=== PATIENT | male | born 1985 | race Caucasian/White ===

== ENCOUNTER 2025-05-27 20:06 | Emergency (ER) | payer BC, SELFPAY ==
[2025-05-27 20:17] VITALS: BP 126/83
[2025-05-27 20:40] LABS: Hematocrit 41.9 % (39.0-52.0); Hemoglobin 14.1 g/dL (13.0-18.0); Mean Corp Hgb Conc. 33.7 g/dL (33.0-37.0); Mean Corpuscular Volume 88.8 fL (80.0-94.0); Nucleated Red Blood Cells % 0 % (-); Platelet Count 301 10^3/uL (130-400); Red Cell Dist. Width 12.0 % (11.5-14.5)
[2025-05-27 20:54] LABS: ALT (SGPT) 28 U/L (0-50); AST (SGOT) 27 U/L (17-59); Albumin 4.6 g/dl (3.5-5.0); Alkaline Phosphatase 60 U/L (38-126); Blood Urea Nitrogen 22 mg/dl (9-20); Calcium 9.6 mg/dl (8.4-10.2); Carbon Dioxide 27 mmol/L (22-30); Chloride 104 mmol/L (98-107); Glucose 95 mg/dl (70-99); Potassium 4.1 mmol/L (3.5-5.1); Sodium 139 mmol/L (135-145); Total Protein 7.3 g/dl (6.3-8.2); eGFR > 60.00
[2025-05-27 21:03] LABS: Troponin I < 0.012 ng/ml
[2025-05-27 22:44] VITALS: BMI 23.4
[2025-05-27 22:51] VITALS: BP 124/82
--- NOTE | 2025-05-27 23:36 | ED.GENMED ---
History of Present Illness
<Nellie Sotelo MD, Resident - Last Filed: 05/28/25 00:01>
General
Chief Complaint: Chest Pain
Source: patient
Time Seen by Provider: 05/27/25 22:50
Nursing documentation reviewed up to this point in time: agreed with
History of Present Illness
History of Present Illness:
Mr. John eSay is a 39-year-old male with a PMH of a spontaneous pneumothorax, who is presenting with sharp left pectoral pain in the setting of dull pain since a fall during soccer 3 weeks ago.
He slipped on wet grass in the rain while playing soccer and fell his left side, getting a bruise on his left hip that is healing and mild pain at his left chest wall due to falling on his left arm, which was adducted at his side. Today while
walking he felt sharp pain at his left pectoral region.
He states this chest pain does not feel like his previous spontaneous pneumothorax. Previous pneumothorax started while he was folding clothes. He tolerated it for 3 days and went to urgent care when he could not breathe deeply enough. He
received surgery for his pneumothorax.
He denies retrosternal chest pain and shortness of breath.
Past History
<Nellie Sotelo MD, Resident - Last Filed: 05/28/25 00:01>
Past History
ED Past Medical History: None
ED Past Surgical History: None
Social History
Tobacco: Non-smoker
Personal:
Living: with family
Employment: Employed
Review of Systems
<Nellie Sotelo MD, Resident - Last Filed: 05/28/25 00:01>
Review of Systems
All Other Systems: ROS reviewed and negative except as documented in HPI and ROS
Phy Exam
<Nellie Sotelo MD, Resident - Last Filed: 05/28/25 00:01>
Physical Exam
Physical Exam:
General: In no acute acute distress, speaking comfortably in full sentences
Lungs: Clear to auscultation in all lung lewis, breath sounds auscultated in all lung lewis
Cardiovascular: Regular rate and rhythm
Chest Wall: No bruising, discoloration, or rash
No tenderness to palpation, except point tenderness at the retroareolar area to deep palpation
MSK:
Movement (abduction, flexion, circumduction) of the left arm/shoulder triggers his chest wall pain
No tenderness to palpation of left shoulder
Healing bruise at left hip
Abdomen: Normal bowel sounds, no tenderness to palpation
Scores
<Nellie Sotelo MD, Resident - Last Filed: 05/28/25 00:01>
Heart Score for Chest Pain Patients
STEMI patient?: No
History: Slightly or Non-Suspicious
ECG: Normal
Age: </= 45 years
Risk Factors: No Risk Factors
Troponin: </= Normal Limit
Heart Score for Chest Pain Patients: 0
Heart Score Risk: 2.5% MACE over next 6 weeks
Course
<Nellie Sotelo MD, Resident - Last Filed: 05/28/25 00:01>
Orders/Labs/Results
Orders:
Orders
05/27/25 20:07
Electrocardiogram (*1) Urgent
Reason for Study: Chest Pain
EKG- Treatment ONCE
IV Insert/Care/Rem.- Treatment PRN
05/27/25 20:19
CR Chest - 2 Views Urgent
Comment:
Reason For Exam: L sided chest pain, hx of pneumothorax
05/27/25 20:30
Complete Blood Count/With Diff Urgent
Comprehensive Metabolic Panel Urgent
Troponin I Urgent
Abnormal Lab Results
05/27/25
20:30
Absolute Monos (auto) 0.8 H 10^3/uL
(0.1-0.6)
Monocytes % 9.4 H %
(1.7-9.3)
BUN 22 H mg/dl
(9-20)
05/27/25 20:30
05/27/25 20:30
Vital Signs
Initial and Last Documented VS:
Initial Vital Signs
Temp Pulse Resp BP Pulse Ox
98.2 F 75 18 126/83 99
05/27/25 20:17 05/27/25 20:17 05/27/25 20:17 05/27/25 20:17 05/27/25 20:17
Last Documented Vital Signs
Temp Pulse Resp BP Pulse Ox
98.2 F 57 13 124/82 98
05/27/25 20:17 05/27/25 22:51 05/27/25 22:51 05/27/25 22:51 05/27/25 23:39
<Moose Whitaker DO - Last Filed: 05/27/25 23:53>
Orders/Labs/Results
Orders:
Orders
05/27/25 20:07
Electrocardiogram (*1) Urgent
Reason for Study: Chest Pain
EKG- Treatment ONCE
IV Insert/Care/Rem.- Treatment PRN
05/27/25 20:19
CR Chest - 2 Views Urgent
Comment:
Reason For Exam: L sided chest pain, hx of pneumothorax
05/27/25 20:30
Complete Blood Count/With Diff Urgent
Comprehensive Metabolic Panel Urgent
Troponin I Urgent
Abnormal Lab Results
05/27/25
20:30
Absolute Monos (auto) 0.8 H 10^3/uL
(0.1-0.6)
Monocytes % 9.4 H %
(1.7-9.3)
BUN 22 H mg/dl
(9-20)
05/27/25 20:30
05/27/25 20:30
Vital Signs
Initial and Last Documented VS:
Initial Vital Signs
Temp Pulse Resp BP Pulse Ox
98.2 F 75 18 126/83 99
05/27/25 20:17 05/27/25 20:17 05/27/25 20:17 05/27/25 20:17 05/27/25 20:17
Last Documented Vital Signs
Temp Pulse Resp BP Pulse Ox
98.2 F 57 13 124/82 98
05/27/25 20:17 05/27/25 22:51 05/27/25 22:51 05/27/25 22:51 05/27/25 23:39
<Nellie Sotelo MD, Resident - Last Filed: 05/28/25 00:01>
MDM/Problems Addressed
Differential Diagnosis Includes:
Rib fracture
Referred pain
Intercostal nerve irritation
Left pectoralis muscle strain
Costochondritis
Pneumothorax
Shingles
Acute coronary syndrome
Serositis
MDM/Problems Addressed:
X-ray: No pneumothorax
EKG NSR, troponin not elevated
CBC and CMP WNL
<Nellie Sotelo MD, Resident - Last Filed: 05/28/25 00:01>
*Radiology
Radiology exam reviewed: radiology read reviewed
*Pulse Oximetry
SaO2: 98
Oxygen Mode of Delivery: Room air
Patient hypoxic: no
*EKG
Interpreted by ED Provider?: Yes
Interpretation: normal
Comparison EKG: no comparison EKG present
Rate: normal
Rhythm: sinus
[place]: normal axis
Interval: normal interval
QRS Pattern: normal QRS
Ischemia: no ischemia
*Automotive Quality Engineer Interpretation
Rate: normal
Interpretation: normal
Rhythm: sinus
*Critical Care Note
Total Time (30-74mins, 75-104mins- exclusive of procedures): Not Applicable
<Moose Whitaker, DO - Last Filed: 05/27/25 23:53>
*Pulse Oximetry
Patient hypoxic: no
*Critical Care Note
Total Time (30-74mins, 75-104mins- exclusive of procedures): Not Applicable
<Nellie Sotelo MD, Resident - Last Filed: 05/28/25 00:01>
Update Note
Update Note:
Mr. Denis is a 39-year-old male with a PMH notable for spontaneous pneumothorax who presents with left chest wall pain. Based on the reproducibility on physical exam it is likely musculoskeletal in origin. Chest x-ray did not demonstrate large
pneumothoraces bilaterally. Patient was encouraged to use incentive spirometer and take [id number] pain medicine as needed
ED Attending Note
<Nellie Sotelo MD, Resident - Last Filed: 05/28/25 00:01>
-
Portions of this chart may have been created with voice recognition software.� Occasional wrong word or��sound alike� substitutions may have occurred due to the inherent limitations of voice recognition software.
<Moose Whitaker, DO - Last Filed: 05/27/25 23:53>
ED Attending Note
Patient seen and examined by attending physician: Yes
I performed a history and physical exam of patient and discussed management with resident, I reviewed resident's note and agree with documented findings and plan of care.: Yes
ED Attending Note:
Note:
CHIEF COMPLAINT(S)
Sharp, recurrent chest pain exacerbated by movement, particularly in the left arm.
HISTORY OF PRESENT ILLNESS
The patient is a 39-year-old male who presents with recurrent, sharp chest pain that started a few weeks ago. Initially, the pain was severe but became more manageable over time, maintaining at around a level two on the pain scale out of ten. Today,
the intensity of the pain unexpectedly increased without any apparent trigger such as excessive movement, coughing, or trauma. The pain is notably worse when the patient attempts deep breaths or moves his left arm, particularly when lifting it. He
denies any recent falls or trauma that could have exacerbated the pain.
Review of imaging reveals scarring on the right lung, likely residual from a previous lung collapse. There is no current evidence on the imaging of a new pneumothorax, fractures, pneumonia, or pulmonary infarction. Physical examination reveals
localized tenderness in the intercostal space, which is the area between two ribs. Pain reproduction upon palpation in this region suggests intercostal muscle strain. There is no discoloration, and the patient denies any significant musculoskeletal
injuries.
The patient has a history of a previous lung collapse, leading to a procedure to address bleeding, with a resultant scar observed on imaging.
PHYSICAL EXAM
General: Alert, no acute distress.
Skin: Warm, dry.
Head: Normocephalic, atraumatic.
Neck: Supple, trachea midline.
Eye, Ears, Nose, Mouth, and Throat: Oral mucosa moist.
Cardiovascular: Normal peripheral perfusion, No edema.
Respiratory: Respirations are non-labored, noted scarring on right lung from previous injury. No current pneumothorax.
Gastrointestinal: Abdomen nondistended.
Back: Normal range of motion, Normal alignment.
Musculoskeletal: Reproducible pain on pressing intercostal space, otherwise normal range of motion and strength in upper limbs.
Neurological: Alert and oriented to person, place, time, and situation. No focal neurological deficit observed.
Psychiatric: Cooperative, appropriate mood & affect.
PROBLEM LIST
Acute Problems:
1. Sharp chest pain exacerbated by arm movement and deep breathing.
2. 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
PLAN
1. The patient is advised to use an incentive spirometer to aid in recovery and provide chest wall physical therapy through deep breathing exercises.
2. Administer ibuprofen regularly to manage pain, instructed to take it every six hours.
3. Avoid unnecessary physical strain that could exacerbate the intercostal muscle strain.
4. Return to the emergency department if there is difficulty breathing, fever, or worsening pain.
DIFFERENTIAL DIAGNOSIS
The Differential Diagnosis includes, in no particular order and is not limited to:
1. Intercostal muscle strain
2. Costochondritis
3. Pleuritic chest pain
4. Recurrent pneumothorax
5. Fractured rib
6. Pulmonary embolism
7. Myocardial infarction
8. Pericarditis
9. Anxiety-related chest pain
10. Tietze syndrome
Disposition:
SUMMARY OF ENCOUNTER
The patient, a 39-year-old male, presented to the emergency department with recurrent, sharp chest pain exacerbated by arm motion and deep breaths. The pain began a few weeks prior and, after initial alleviation, had worsened without clear cause.
Upon examination, the pain was found to be reproducible upon palpation of the intercostal space lateral to the left areola, with moderate intercostal tenderness, but no signs of respiratory distress, rash, or shingles. The pain intensified with
movement, suggesting an intercostal muscle strain. Imaging previously ordered was reviewed and indicated no pneumothorax and confirmed lung scarring from a past pneumothorax. Lab results, including chemistry, CBC, and ECG, were normal with a sinus
rhythm showing no ischemic changes, and troponin levels were within normal limits.
DISPOSITION
Discharge.
ASSESSMENT
Intercostal muscle strain, exacerbated by movement.
PLAN
1. Use an incentive spirometer 10 times per hour while awake to aid in recovery and prevent respiratory complications.
2. Administer ibuprofen as an NSAID every six hours for pain management.
3. Advise on minimizing physical exertion to prevent further strain on the intercostal muscles.
4. Return to the emergency department if symptoms worsen or if there is difficulty breathing.
INDEPENDENT REVIEW OF LABS AND INTERPRETATION OF TESTS
My independent review of chemistry is normal.
My independent review of CBC is normal.
My independent interpretation of troponin levels is normal.
My independent interpretation of the ECG is normal, showing sinus rhythm with no ischemic changes.
PATIENT EDUCATION AND COUNSELING
Instructed on the use of the incentive spirometer and the importance of deep breathing exercises. Advised on the regular use of NSAIDs for pain control and warned against heavy lifting or movements that might exacerbate the muscle strain.
MEDICATION RECONCILIATION
Ibuprofen to be taken every six hours for pain management.
MEDICAL DECISION MAKING
-Chronic conditions affecting care: Previous lung collapse and scarring. Differential Diagnosis: Intercostal muscle strain, costochondritis, pleuritic chest pain, recurrent pneumothorax, fractured rib, pulmonary embolism, myocardial infarction,
pericarditis, anxiety-related chest pain, Tietze syndrome.
Data:
Category 1:
Non-emergency department records reviewed. Imaging and lab interpretations confirmed no acute issues.
Category 3:
Consideration of Admission/Observation: Escalation of care including admission/observation was considered given the complexity and risk of the patients presenting complaint, exam findings, and/or their underlying comorbidities. However, ultimately,
I feel the patient is safe for outpatient management with close follow-up. Reasoning: Work-up reassuring, does not reveal any acute life/organ threatening processes, patients symptoms well controlled upon reevaluation, reexamination is reassuring,
vitals are stable, patient agreeable with discharge, reliable for follow-up.
DIAGNOSIS
Intercostal muscle strain (ICD-10: S29.011A).
Discharge Plan
Departure
Patient Disposition: Home (Routine Discharge)
Date of Disposition: 05/27/25
Time of Disposition: 23:50
Patient with high blood pressure during this ER visit?: No
Condition: Good
Discharge Problem:
Chest wall pain
Instructions: Costochondritis
Prescriptions:
No Action
No Current Medications
0
Referrals:
Angelica Terrazas MD [Family Provider, Family Practice]
Activity Restrictions/Additional Instructions:
Dear Mr. Seay, you came to the ED due to left chest wall pain with a concern for pneumothorax. There was no pneumothorax found on chest x-ray. The source of your pain is likely musculoskeletal.
Please use your incentive spirometer every 6 hours. Feel free to use [id number] analgesia like Tylenol, Motrin, Advil for pain.
Please return if you develop chest pain or shortness of breath.
Interventions
Interventions:
*Risk Screen - Suicide Last Done: 05/27/25 20:17
*General Assessment Last Done: 05/27/25 20:17
*Neglect/Abuse Screening Last Done: 05/27/25 20:17
*ED- Fall Risk Assessment Last Done: 05/27/25 22:45
*ED COVID-19 Vaccine History Last Done: 05/27/25 22:45
ED- Cardiac Assessment Last Done: 05/27/25 22:45
Discharge Date and Time
Print Language: YAKUT
[2025-05-28 00:40] VITALS: BP 140/85
== END 2025-05-28 00:15 | disposition home or self-care (01) ==
LOC: EMR 20:06
PROVIDERS: Emergency Medicine; EMERGENCY PHYSICIAN Emergency Medicine; FAMILY PHYSICIAN Family Medicine
DX: S29.011A Strain of muscle and tendon of front wall of thorax, initial encounter (principal); S70.02XA Contusion of left hip, initial encounter; W01.0XXA Fall on same level from slipping, tripping and stumbling without subsequent striking against object, initial encounter; Y93.66 Activity, soccer; J98.4 Other disorders of lung
CPT/HCPCS: 99283; 71046; 80053; 84484; 85025; 93005